=== PATIENT | male | born 1940 | race Caucasian/White ===

== ENCOUNTER 2017-07-08 17:10 | Emergency (ER) | payer MEDICARE ==
[2017-07-08] MEDS ORDERED: OXYCODONE-ACETAMINOPHEN 5-325 MG TABLET PO ONE (18:25)
[2017-07-08] MEDS ORDERED: PREDNISONE 20 MG TABLET PO ONE (18:25)
--- NOTE | 2017-07-08 18:26 | ER Document Report ---
ED Medical Screen (RME) - General Chief Complaint: Weakness Stated Complaint: BODY WEAKNESS Time Seen by Provider: 07/08/17 18:13 Mode of Arrival: Ambulatory Information source: Patient Notes: 76-year-old male presents with complaints of lower extremity weakness that started around lunchtime. Patient denies any headache denies any back pain Patient also notes gout pain in his hand I have greeted and performed a rapid initial assessment of this patient. A comprehensive ED assessment and evaluation of the patient, analysis of test results and completion of the medical decision making process will be conducted by additional ED providers. PHYSICAL EXAMINATION: GENERAL: Well-appearing, well-nourished and in no acute distress. HEAD: Atraumatic, normocephalic. EYES: Pupils equal round extraocular movements intact, conjunctiva are normal. ENT: Nares patent NECK: Normal range of motion LUNGS: No respiratory distress Musculoskeletal: Normal range of motion NEUROLOGICAL: Normal speech, normal gait. PSYCH: Normal mood, normal affect. SKIN: Warm, Dry, normal turgor, no rashes or lesions noted. TRAVEL OUTSIDE OF THE [place] IN LAST 30 DAYS: No - Related Data Allergies/Adverse Reactions: bacitracin [Bacitracin] Allergy (Verified 07/08/17 17:13) Past Medical History - Past Medical History Cardiac Medical History: Reports: Hx Atrial Fibrillation, Hx Congestive Heart Failure, Hx Hypercholesterolemia, Hx Hypertension Pulmonary Medical History: Reports: Hx COPD Endocrine Medical History: Reports: Hx Diabetes Mellitus Type 2 Renal/ Medical History: Denies: Hx Peritoneal Dialysis Past Surgical History: Reports: Hx Vascular Surgery - Immunizations Hx Diphtheria, Pertussis, Tetanus Vaccination: Yes Physical Exam - Vital signs Vitals: Temp Resp BP Pulse Ox 97.7 F 16 171/91 H 98 07/08/17 17:13 07/08/17 17:13 07/08/17 17:13 07/08/17 17:13 Course - Vital Signs Vital signs: Temp Pulse Resp BP Pulse Ox 97.7 F 16 171/91 H 98 07/08/17 17:13 07/08/17 17:13 07/08/17 17:13 07/08/17 17:13
--- NOTE | 2017-07-08 19:45 | RADIOLOGY REPORT (SQ) ---
EXAM DESCRIPTION: CT HEAD WITHOUT COMPLETED DATE/TIME: 07/08/2017 7:33 pm REASON FOR STUDY: lower extremity weakness COMPARISON: None. TECHNIQUE: Axial images acquired through the brain without intravenous contrast. Images reviewed wi th bone, brain and subdural windows. Images stored on PACS. All CT scanners at this facility use dose modulation, iterative reconstruction, and/or weight based d osing when appropriate to reduce radiation dose to as low as reasonably achievable (ALARA). [facility]: Dose Right [facility]: CareDose [facility]: Dose Right [facility]: Teradose 4D [facility]: Smart Binpress RADIATION DOSE: Up-to-date CT equipment and radiation dose reduction techniques were employed. CTDIv ol: 49.0 mGy. DLP: 881 mGy-cm. mGy. LIMITATIONS: None. FINDINGS: VENTRICLES: Prominent. CEREBRUM: No masses. No hemorrhage. No midline shift. Areas of low density in the white matter mos t likely due to chronic micro-vascular ischemic change. No evidence for acute infarction. CEREBELLUM: No masses. No hemorrhage. No alteration of density. No evidence for acute infarction. EXTRAAXIAL SPACES: Mild age-related involutional change. No fluid collections. No masses. ORBITS AND GLOBE: No intra- or extraconal masses. Normal contour of globe without masses. CALVARIUM: No fracture. PARANASAL SINUSES: No fluid or mucosal thickening. SOFT TISSUES: No mass or hematoma. OTHER: No other significant finding. IMPRESSION: MILD CHRONIC CHANGES OF ATROPHY AND MICROVASCULAR ISCHEMIA. NO ACUTE PROCESS. EVIDENCE OF ACUTE STROKE: NO. TECHNICAL DOCUMENTATION: JOB ID: [id number] Quality ID # [id number]: Final reports with documentation of one or more dose reduction techniques (e.g., Au tomated exposure control, adjustment of the mA and/or kV according to patient size, use of iterative reconstruction technique) 2010 [employer]- All Rights Reserved
[2017-07-08 20:05] LABS: ABSOLUTE BASOPHILS # (AUTO) 0.1 10^3/uL (0.0-0.2); ABSOLUTE EOSINOPHILS # (AUTO) 0.5 10^3/uL (0.0-0.6); ABSOLUTE LYMPHOCYTES (AUTO) 1.2 10^3/uL (0.5-4.7); ABSOLUTE MONOCYTES (AUTO) 0.8 10^3/uL (0.1-1.4); ABSOLUTE NEUT (AUTO) 6.1 10^3/uL (1.7-8.2); BASOPHILS % (AUTO) 0.6 % (0-2); EOSINOPHILS % (AUTO) 5.5 % (0-6); HEMATOCRIT 39.6 % (37.9-51.0); HEMOGLOBIN 13.3 g/dL (13.5-17.0); HGB HCT DIFFERENCE 0.3; LYMPHOCYTES % (AUTO) 13.6 % (13-45); MEAN CORPUSCULAR HEMOGLOBIN 28.7 pg (27.0-33.4); MEAN CORPUSCULAR HGB CONC 33.7 g/dL (32.0-36.0); MEAN CORPUSCULAR VOLUME 85 fl (80-97); MONOCYTES % (AUTO) 9.5 % (3-13); RED BLOOD COUNT 4.65 10^6/uL (4.35-5.55); RED CELL DISTRIBUTION WIDTH 16.8 % (11.5-14.0); SEGMENTED NEUTROPHILS % (AUTO) 70.8 % (42-78); WHITE BLOOD COUNT 8.6 10^3/uL (4.0-10.5)
[2017-07-08 20:30] LABS: CREATINE KINASE MB 0.34 ng/mL (<4.55)
[2017-07-08 20:31] LABS: TROPONIN I < 0.012 ng/mL
[2017-07-08 20:34] LABS: ALANINE AMINOTRANSFERASE 21 U/L (21-72); ALBUMIN 4.5 g/dL (3.5-5.0); ALKALINE PHOSPHATASE 87 U/L (38-126); ANION GAP 14 (5-19); ASPARTATE AMINO TRANSFERASE 17 U/L (17-59); BILIRUBIN,DIRECT 0.5 mg/dL (0.0-0.4); BILIRUBIN,TOTAL 0.8 mg/dL (0.2-1.3); BLOOD UREA NITROGEN 20 mg/dL (7-20); CARBON DIOXIDE 26 mmol/L (22-30); CHLORIDE 99 mmol/L (98-107); CREATINE KINASE 31 U/L (55-170); CREATININE RESULT 1.48 mg/dL (0.52-1.25); GLUCOSE 96 mg/dL (75-110); POTASSIUM 4.2 mmol/L (3.6-5.0); SODIUM 139.4 mmol/L (137-145); TOTAL PROTEIN 7.4 g/dL (6.3-8.2)
[2017-07-08] MEDS ORDERED: NORMAL SALINE 1000 ML 1,000 ML IV ONE (20:43)
--- NOTE | 2017-07-08 20:44 | ER Document Report ---
ED General - General Chief Complaint: Weakness Stated Complaint: BODY WEAKNESS Time Seen by Provider: 07/08/17 18:13 Mode of Arrival: Ambulatory TRAVEL OUTSIDE OF THE [place] IN LAST 30 DAYS: No - HPI Notes: Patient with a history of defibrillator placement, stent placement, diabetes, COPD, Gout, congestive heart failure, hypertension, and hypercholesterolemia presents to the ED complaining of generalized weakness that began about 8 hours ago. Patient states that he has felt this in the past and was dehydrated at the time. Patient states that he is still eating and drinking without any difficulties. He is urinating normally and having normal bowel movements. Patient states that his gout is flaring up in his left third digit, but denies any other pain. Patient states that he is ambulating without any dyspnea on exertion. He has not been having any paroxysmal nocturnal dyspnea, or LE swelling. Denies any headache, fever, head injury, neck pain, changes in vision /speech/mentation/hearing, URI, sore throat, chest pain, palpitations, syncope, cough, shortness of breath, wheeze, dyspnea, abdominal pain, nausea/vomiting/ diarrhea, urinary retention, dysuria, hematuria, numbness/tingling, muscle paralysis, or rash. Patient denies any recent illness, travel, sick contacts. Denies any calf pains. - Related Data Allergies/Adverse Reactions: bacitracin [Bacitracin] Allergy (Verified 07/08/17 17:13) Past Medical History - General Information source: Patient - Social History Smoking Status: Former Smoker Chew tobacco use (# tins/day): No Frequency of alcohol use: None Drug Abuse: None Family History: Reviewed & Not Pertinent - Past Medical History Cardiac Medical History: Reports: Hx Atrial Fibrillation, Hx Congestive Heart Failure, Hx Hypercholesterolemia, Hx Hypertension Pulmonary Medical History: Reports: Hx COPD Endocrine Medical History: Reports: Hx Diabetes Mellitus Type 2 Renal/ Medical History: Denies: Hx Peritoneal Dialysis Past Surgical History: Reports: Hx Cardiac Surgery - defibulator placement, Hx Vascular Surgery - Immunizations Hx Diphtheria, Pertussis, Tetanus Vaccination: Yes Review of Systems - Review of Systems Notes: REVIEW OF SYSTEMS: CONSTITUTIONAL : Denies fever, chills, or sweats. Denies recent illness. see hpi. EENT: Denies eye, ear, throat, or mouth pain or symptoms. Denies nasal or sinus congestion or discharge. Denies throat, tongue, or mouth swelling or difficulty swallowing. CARDIOVASCULAR: Denies chest pain. Denies palpitations or racing or irregular heart beat. Denies ankle edema. RESPIRATORY: Denies cough, cold, or chest congestion. Denies shortness of breath, difficulty breathing, or wheezing. GASTROINTESTINAL: Denies abdominal pain or distention. Denies nausea, vomiting , or diarrhea. Denies blood in vomitus, stools, or per rectum. Denies black, tarry stools. Denies constipation. GENITOURINARY: Denies difficulty urinating, painful urination, burning, frequency, blood in urine, or discharge. MUSCULOSKELETAL: see hpi SKIN: Denies rash, lesions or sores. NEUROLOGICAL: see hpi. denies confusion or altered mental status. Denies passing out or loss of consciousness. Denies dizziness or lightheadedness. Denies headache. Denies problems with gait or speech. Denies sensory loss, numbness, or tingling. Denies seizures. PSYCHIATRIC: Denies anxiety or stress. Denies depression, suicidal ideation, or homicidal ideation. ALL OTHER SYSTEMS REVIEWED AND NEGATIVE. Dictation was performed using [employer] voice recognition software Physical Exam - Vital signs Vitals: Temp Resp BP Pulse Ox 97.7 F 16 171/91 H 98 07/08/17 17:13 07/08/17 17:13 07/08/17 17:13 07/08/17 17:13 Notes: PHYSICAL EXAMINATION: GENERAL: Well-appearing, well-nourished and in no acute distress. A&Ox4 HEAD: Atraumatic, normocephalic. EYES: Pupils equal round and reactive to light, extraocular movements intact, sclera anicteric, conjunctiva are normal. ENT: EAC clear b/l. TM's intact b/l without erythema, fluid, or perforation. Nares patent and without discharge. oropharynx clear without exudates. No tonsilar hypertrophy or erythema. Moist mucous membranes. No sinus tenderness. NECK: Normal range of motion, supple without lymphadenopathy. No rigidity/ meningismus. LUNGS: Breath sounds clear to auscultation bilaterally and equal. No wheezes rales or rhonchi. HEART: IRR without murmurs, rubs, gallops. ABDOMEN: Soft, nontender, nondistended abdomen. No guarding, no rebound. No masses appreciated. Normal bowel sounds present. No CVA tenderness bilaterally. Musculoskeletal: Ext b/l: FROM to passive/active. Strength 5+/5. No focal deficits noted. N/V intact. Marcela neg b/l. Extremities: No cyanosis, clubbing, or edema b/l. Peripheral pulses 2+. Capillary refill less than 3 seconds. NEUROLOGICAL: MMSE intact. NIH score of 0. Cranial nerves grossly intact. Normal speech, normal gait. Normal sensory, motor exams. REHAN's intact. Finger :nose, Heel:gaitan wnl, pronator drift negative, pt able to ambulate with SPC w/o difficulty. PSYCH: Normal mood, normal affect. SKIN: Warm, Dry, normal turgor, no rashes or lesions noted. Course - Re-evaluation Re-evalutation: 07/08/17 23:59 Pt states after the fluid he was feeling good and wants to go home. Pt states no longer feeling weak. Pt tolerating PO intake and eating dinner. 07/09/17 01:25 Patient is an afebrile, well-hydrated, 76-year-old male who presents the ED with weakness. Vitals are stable. PE otherwise unremarkable at this time. NIH score was 0. Mini-Mental status exam is intact. There are no focal neurological deficits. CT scan of the head was negative. CBC was unremarkable. CMP did show stable chronic kidney disease the patient has been aware of. Patient still urinating without any difficulties. Patient is tolerating p.o. intake as noted above. Cardiac enzymes 2 and EKGs 2 were unremarkable for any acute pathology. Patient has a heart score of 3 (low). Urinalysis was unremarkable. Patient is currently asymptomatic and is feeling much better after 1.5 L saline. Patient states that he would like to go home knowing the risks and benefits. Low suspicion/risk for any ACS, PE, pneumothorax, pericarditis, dissection, sepsis, meningitis, acute glaucoma, temporal arteritis, intracranial hemorrhage, ischemic stroke, or fracture at this time. Patient is aware that his condition can change from initial presentation and that he needs to monitor symptoms closely for any acute changes. Conservative measures for symptoms. Recheck with your PCM in 2-3 days. Return to the ED with any worsening/concerning symptoms otherwise as reviewed discharge. Patient is in agreement. - Vital Signs Vital signs: Temp Pulse Resp BP Pulse Ox 97.7 F 22 H 146/94 H 95 07/08/17 17:13 07/09/17 00:15 07/09/17 00:01 07/09/17 00:15 - Laboratory Result Diagrams: 07/08/17 19:45 07/08/17 19:45 Laboratory results interpreted by me: 07/08/17 07/08/17 19:45 19:45 Hgb 13.3 L RDW 16.8 H Creatinine 1.48 H Est GFR ( Amer) 56 L Est GFR (Non-Af Amer) 46 L Direct Bilirubin 0.5 H Creatine Kinase 31 L Discharge - Discharge Clinical Impression: Weakness Condition: Stable Disposition: HOME, SELF-CARE Instructions: Weakness ([facility]), Follow-Up Care ([facility]) Additional Instructions: Maintain adequate fluid and food intake Take home medications as directed Monitor blood pressure Monitor for any changes in your condition Recheck with your PCM in 2-3 days Return to the ED with any worsening symptoms and/or development of fever, headache, changes in vision/speech/mentation/behavior/balance/hearing, chest pain, palpitations, syncope, shortness of breath, trouble breathing, abdominal pain, n/v/d, blood in stool/urine, loss of control of bowel/bladder, urinary retention, muscle weakness/paralysis, numbness/tingling, or other worsening symptoms that are concerning to you. Forms: Elevated Blood Pressure Referrals: SAMEERA PORTER FNP [Primary Care Provider] - 07/11/17
--- NOTE | 2017-07-08 21:01 | EKG REPORT ---
SEVERITY:- ABNORMAL ECG - VENTRICULAR-PACED COMPLEXES : Confirmed by: Arlyn Gilmore MD 08-Jul-2017 21:00:55
[2017-07-08 21:27] LABS: APPEARANCE,URINE CLEAR; BILIRUBIN,URINE NEGATIVE (NEGATIVE); GLUCOSE, URINE NEGATIVE (NEGATIVE); KETONES,URINE NEGATIVE (NEGATIVE); LEUKOCYTE ESTERASE,URINE NEGATIVE (NEGATIVE); NITRITE,URINE NEGATIVE (NEGATIVE); PROTEIN,URINE NEGATIVE (NEGATIVE); URINE SPECIFIC GRAVITY 1.006; UROBILINOGEN,URINE NEGATIVE mg/dL (<2.0)
[2017-07-08] MEDS ORDERED: NORMAL SALINE 500 ML IV ONE (23:39)
[2017-07-09 02:04] VITALS: BP 133/83
--- NOTE | 2017-07-09 16:44 | EKG REPORT ---
SEVERITY:- ABNORMAL ECG - ATRIAL-SENSED VENTRICULAR-PACED COMPLEXES : Confirmed by: Arlyn Gilmore MD 09-Jul-2017 16:43:59
== END 2017-07-09 02:04 | disposition home or self-care (01) ==
LOC: ER 17:10
DX: R53.1 Weakness (principal); E11.9 Type 2 diabetes mellitus without complications; J44.9 Chronic obstructive pulmonary disease, unspecified; I50.9 Heart failure, unspecified; I10 Essential (primary) hypertension; E78.00 Pure hypercholesterolemia, unspecified
CPT/HCPCS: 93005; 99285; 96360; 36415; 82553; 82550; 85025; 80053; 81001; 84484; 70450; 93010; A9270; J7030; J7512

== ENCOUNTER → 2017-08-29 | Outpatient (CLI) | payer MEDICARE, BC ==
[~2017-08-29] MED LIST: AMINOPHYLLINE INJ/PF 250 MG/10 ML SDV IV ONE; REGADENOSON INJ 0.4 MG/5 ML DISP.SYRIN IV ONE
--- NOTE | 2017-08-29 19:28 | DRAGON STRESS TEST REPORT ---
INTRAVENOUS LEXISCAN CARDIOLITE STRESS TEST USING SINGLE PHOTON EMMISION COMPUTERIZED TOMOGRAPHIC. DATE OF PROCEDURE: August 29, 2017 INDICATION : Coronary artery disease CARDIAC RISK FACTORS: Diabetes, hypertension, dyslipidemia, CHF RESTING EKG: Ventricular paced rhythm. Underlying atrial rhythm is most likely atrial fibrillation. STRESS EKG: No significant changes noted with LexiScan bolus REASON FOR TERMINATION: Protocol. PROCEDURE REPORT: Baseline heart rate 72 beats per minute with blood pressure of 141/88. Patient had no significant complaints. Heart rate at 2 minutes post bolus 88 with a blood pressure of 140/98. 3 minutes post bolus heart rate 80 with blood pressure of 160/83. No significant EKG changes were noted. Patient had no significant complaints during the procedure or postprocedure. Patient injected with Aminophyllin 75 mg at 3 minutes or later after Lexiscan bolus. CONCLUSIONS: Normal EKG and hemodynamic response to IV LexiScan. NUCLEAR DATA: At rest the patient was given 13.63 millicuries of technetium 99 sestamibi injected intravenously. As per protocol rest gated SPECT images were obtained. Subsequently the patient was given intravenous LexiScan at a dose of 0.4 mg in 5 mL intravenously, followed by flush with normal saline. Subsequently the stress dose of 40.2 millicuries of technetium 99 sestamibi was injected intravenously. As per protocol stress gated images were obtained. NUCLEAR INTERPRETATION: Both raw and processed data were used for interpretation. Visual, qualitative, computer-generated quantitative data was used. There was good myocardial uptake of technetium compound. Motion artifact and soft tissue attenuations were noted. Increased visceral uptake was noted. No definitive areas of transient perfusion defect noted. Moderate to severe fixed defect noted in the basal and mid inferior wall consistent with myocardial scar. EKG gated imaging showed LV EF at 25 %, rest and stress gated EF similar visually. Diffuse hypokinesia along with akinesia of the basal and mid inferior wall and septal hypokinesia was noted. T. I D. ratio was 1.06. Lung heart ratio noted to be within normal limits 0.32. No significant extracardiac and abnormal radiotracer activities were noted. RV free wall uptake was noted to be WNL. IMPRESSION: Also refer to comments under nuclear interpretation. Also test results needs to be interpreted in the context of pretest probability. 1. There is no definitive scintigraphic evidence of LexiScan induced myocardial ischemia. 2. Moderate to severe fixed defect noted involving the basal and mid inferior wall consistent with myocardial scar/infarction. 3. EKG gated imaging shows left ventricular ejection fraction of approximately 25 %, basal and mid inferior wall akinesia and inter ventricular septal hypokinesia noted most likely related to paced beats. 4. Clinical correlation requested as occasionally single vessel disease or balanced ischemia could be missed. In approximately 10% of the cases Lexiscan may not cause adequate vasodilatory stress. RECOMMENDATIONS: Aggressive risk factor modification, medical therapy. Clinical correlation with echocardiogram derived ejection fraction. Inability to exercise by itself can lead to increased cardiovascular event risks. Consider cardiology consultation and or follow-up if clinically indicated. Harjit Teixeira M.D., [facility] CENTERBenjamin Artists' Booking Representative inbound sales advisor, Board certified in cardiovascular diseases, Nuclear cardiology, Echocardiography Cardiac CT and cardiac MRI Ph. [phone] [facility]
== END ==
LOC: RAD 08:04
PROVIDERS: ATTEND Internal Medicine Cardiovascular Disease
DX: I25.10 Atherosclerotic heart disease of native coronary artery without angina pectoris (principal); I10 Essential (primary) hypertension; E11.9 Type 2 diabetes mellitus without complications; I50.9 Heart failure, unspecified; E78.5 Hyperlipidemia, unspecified
CPT/HCPCS: 93017; 78452; A9500; J2785; J0280; Q9969

== ENCOUNTER 2017-09-18 10:32 | Emergency (ER) | payer BC, MEDICARE ==
--- NOTE | 2017-09-18 10:55 | ER Document Report ---
ED Medical Screen (RME) - General Chief Complaint: Cough Stated Complaint: COUGH,CONGESTION Time Seen by Provider: 09/18/17 10:48 Notes: 77-year-old male patient with 2 day history of congested cough with yellow to white sputum and low-grade fever last night. He is here to be sure he does not have pneumonia. Past medical history is significant for old [place] with an ejection fraction of 25% on a recent Cardiolite stress test. Chronic atrial fibrillation, pacemaker, type 2 diabetes, hyperlipidemia, hypertension and hypothyroidism. He does take Plavix, no anticoagulants. I have greeted and performed a rapid initial assessment of this patient. A comprehensive ED assessment and evaluation of the patient, analysis of test results and completion of the medical decision making process will be conducted by additional ED providers. TRAVEL OUTSIDE OF THE [place] IN LAST 30 DAYS: No - Related Data Allergies/Adverse Reactions: bacitracin [Bacitracin] Allergy (Verified 09/18/17 10:36) Past Medical History - Social History Chew tobacco use (# tins/day): No Frequency of alcohol use: None Drug Abuse: None - Past Medical History Cardiac Medical History: Reports: Hx Atrial Fibrillation, Hx Congestive Heart Failure, Hx Hypercholesterolemia, Hx Hypertension Pulmonary Medical History: Reports: Hx COPD Endocrine Medical History: Reports: Hx Diabetes Mellitus Type 2 Renal/ Medical History: Denies: Hx Peritoneal Dialysis Past Surgical History: Reports: Hx Cardiac Surgery - defibulator placement, Hx Vascular Surgery - Immunizations Hx Diphtheria, Pertussis, Tetanus Vaccination: Yes Physical Exam - Vital signs Vitals: Temp Pulse Resp BP Pulse Ox 97.9 F 91 17 131/86 H 97 09/18/17 10:44 09/18/17 10:44 09/18/17 10:44 09/18/17 10:44 09/18/17 10:44 Course - Vital Signs Vital signs: Temp Pulse Resp BP Pulse Ox 97.9 F 91 17 131/86 H 97 09/18/17 10:44 09/18/17 10:44 09/18/17 10:44 09/18/17 10:44 09/18/17 10:44
[2017-09-18 11:24] LABS: ABSOLUTE BASOPHILS # (AUTO) 0.1 10^3/uL (0.0-0.2); ABSOLUTE EOSINOPHILS # (AUTO) 1.1 10^3/uL (0.0-0.6); ABSOLUTE LYMPHOCYTES (AUTO) 0.8 10^3/uL (0.5-4.7); ABSOLUTE MONOCYTES (AUTO) 0.6 10^3/uL (0.1-1.4); ABSOLUTE NEUT (AUTO) 5.3 10^3/uL (1.7-8.2); BASOPHILS % (AUTO) 0.7 % (0-2); EOSINOPHILS % (AUTO) 13.7 % (0-6); HEMATOCRIT 39.6 % (37.9-51.0); HEMOGLOBIN 13.3 g/dL (13.5-17.0); HGB HCT DIFFERENCE 0.3; LYMPHOCYTES % (AUTO) 10.3 % (13-45); MEAN CORPUSCULAR HEMOGLOBIN 29.1 pg (27.0-33.4); MEAN CORPUSCULAR HGB CONC 33.5 g/dL (32.0-36.0); MEAN CORPUSCULAR VOLUME 87 fl (80-97); MONOCYTES % (AUTO) 7.6 % (3-13); RED BLOOD COUNT 4.57 10^6/uL (4.35-5.55); RED CELL DISTRIBUTION WIDTH 17.1 % (11.5-14.0); SEGMENTED NEUTROPHILS % (AUTO) 67.7 % (42-78); WHITE BLOOD COUNT 7.8 10^3/uL (4.0-10.5)
--- NOTE | 2017-09-18 11:41 | RADIOLOGY REPORT (SQ) ---
EXAM DESCRIPTION: CHEST PA/LAT COMPLETED DATE/TIME: 09/18/2017 11:29 am REASON FOR STUDY: Cough congestion, sputum, fever COMPARISON: 02/07/2014 EXAM PARAMETERS: NUMBER OF VIEWS: two views TECHNIQUE: Digital Frontal and Lateral radiographic views of the chest acquired. RADIATION DOSE: NA LIMITATIONS: none FINDINGS: LUNGS AND PLEURA: Mild chronic interstitial changes present. No infiltrate or effusion. No mass. MEDIASTINUM AND HILAR STRUCTURES: No masses or contour abnormalities. HEART AND VASCULAR STRUCTURES: Heart size is normal. No vascular abnormality. BONES: No acute findings. HARDWARE: Pacemaker/defibrillator. OTHER: No other significant finding. IMPRESSION: NO SIGNIFICANT RADIOGRAPHIC FINDING IN THE CHEST. TECHNICAL DOCUMENTATION: JOB ID: [id number] [employer]- All Rights Reserved
[2017-09-18 11:43] LABS: ALANINE AMINOTRANSFERASE 27 U/L (21-72); ALBUMIN 4.3 g/dL (3.5-5.0); ALKALINE PHOSPHATASE 70 U/L (38-126); ANION GAP 12 (5-19); ASPARTATE AMINO TRANSFERASE 15 U/L (17-59); BILIRUBIN,DIRECT 0.4 mg/dL (0.0-0.4); BILIRUBIN,TOTAL 0.8 mg/dL (0.2-1.3); BLOOD UREA NITROGEN 16 mg/dL (7-20); CALCIUM 9.5 mg/dL (8.4-10.2); CARBON DIOXIDE 33 mmol/L (22-30); CHLORIDE 98 mmol/L (98-107); GLUCOSE 172 mg/dL (75-110); POTASSIUM 4.1 mmol/L (3.6-5.0); SODIUM 143.3 mmol/L (137-145); TOTAL PROTEIN 6.9 g/dL (6.3-8.2)
--- NOTE | 2017-09-18 12:09 | ER Document Report ---
ED General - General Chief Complaint: Cough Stated Complaint: COUGH,CONGESTION Time Seen by Provider: 09/18/17 10:48 Notes: 77-year-old male with history of heart failure presents with coughing for 2 days , productive, no blood, constant, worse than usual and now associated with some sore throat and cold symptoms. No fevers or body aches. Positive flu shot. No increased leg swelling or chest pain. Came to rule out pneumonia. Patient seen in triage, labs and x-ray were ordered. TRAVEL OUTSIDE OF THE [place] IN LAST 30 DAYS: No - Related Data Allergies/Adverse Reactions: bacitracin [Bacitracin] Allergy (Verified 09/18/17 10:36) Past Medical History - Social History Smoking Status: Former Smoker Chew tobacco use (# tins/day): No Frequency of alcohol use: None Drug Abuse: None Family History: Reviewed & Not Pertinent Patient has suicidal ideation: No Patient has homicidal ideation: No - Past Medical History Cardiac Medical History: Reports: Hx Atrial Fibrillation, Hx Congestive Heart Failure, Hx Hypercholesterolemia, Hx Hypertension Pulmonary Medical History: Reports: Hx COPD Endocrine Medical History: Reports: Hx Diabetes Mellitus Type 2 Renal/ Medical History: Denies: Hx Peritoneal Dialysis Past Surgical History: Reports: Hx Cardiac Surgery - defibulator placement, Hx Vascular Surgery - Immunizations Hx Diphtheria, Pertussis, Tetanus Vaccination: Yes Review of Systems - Review of Systems Notes: REVIEW OF SYSTEMS GEN: Chills ENT: sore throat, denies nasal discharge, ear pain EYES: Denies blurry vision, eye pain, discharge CV: Denies chest pain, palpitations, edema RESP: Active cough no shortness of breath GI: Denies abdominal pain, nausea, vomiting, diarrhea MSK: Denies joint pain/swelling, edema, SKIN: Denies rash, skin lesions LYMPH: Denies swollen glands/lymph nodes NEURO: Denies headache, focal weakness or numbness, dizziness PSYCH: Denies depression, suicidal or homicidal ideation PHYSICAL EXAMINATION General: No acute distress, well-nourished Head: Atraumatic, normocephalic ENT: Mouth normal, oropharynx moist, no exudates or tonsillar enlargement Eyes: Conjunctiva normal, pupils equal, lids normal Neck: No JVD, supple, no guarding CVS: Normal rate, regular rhythm, no murmurs Resp: No resp distress, equal and normal breath sounds bilaterally GI: Nondistended, soft, no tenderness to palpation, no rebound or guarding Ext: No deformities, no edema, normal range of motion in upper and lower ext Back: No CVA or midline TTP Skin: No rash, warm Lymphatic: No lymphadeopathy noted Neuro: Awake, alert. Face symmetric. GCS 15. Physical Exam - Vital signs Vitals: Temp Pulse Resp BP Pulse Ox 97.9 F 91 17 131/86 H 97 09/18/17 10:44 09/18/17 10:44 09/18/17 10:44 09/18/17 10:44 09/18/17 10:44 Course - Re-evaluation Re-evalutation: 09/18/17 12:15 Well-appearing male presents with cough and cold symptoms history of heart failure. She has no edema or adventitious lung sounds. Labs and x-ray ordered at triage are normal her baseline. Will prescribe Mucinex diagnosis bronchitis versus upper respiratory infection. Warned about worsening symptoms and the development of pneumonia or volume overload, however given his evaluation here in the ED I think he is stable for discharge. I have discussed with the patient there likely diagnosis, aftercare plan, follow -up plans and my usual and customary return precautions. They verbalized understanding of this. - Vital Signs Vital signs: Temp Pulse Resp BP Pulse Ox 97.9 F 91 17 131/86 H 97 09/18/17 10:44 09/18/17 10:44 09/18/17 10:44 09/18/17 10:44 09/18/17 10:44 - Laboratory Result Diagrams: 09/18/17 11:03 09/18/17 11:03 Laboratory results interpreted by me: 09/18/17 09/18/17 11:03 11:03 Hgb 13.3 L RDW 17.1 H Lymphocytes % 10.3 L Eosinophils % 13.7 H Absolute Eosinophils 1.1 H Carbon Dioxide 33 H Creatinine 1.50 H Est GFR ( Amer) 55 L Est GFR (Non-Af Amer) 45 L Glucose 172 H AST 15 L - Diagnostic Test Radiology reviewed: Image reviewed, Reports reviewed Discharge - Discharge Clinical Impression: Productive cough Condition: Good Disposition: HOME, SELF-CARE Instructions: Cough Suppressant & Expectorant Medications, Nasal Congestion in Infants ([facility]) Prescriptions: Guaifenesin 400 mg PO BID #7 tablet
[2017-09-18 12:57] VITALS: BP 125/76
== END 2017-09-18 12:54 | disposition home or self-care (01) ==
LOC: ER 10:32
DX: R05 Cough (principal); R09.81 Nasal congestion; I50.9 Heart failure, unspecified; J02.9 Acute pharyngitis, unspecified; Z87.891 Personal history of nicotine dependence
CPT/HCPCS: 36415; 71020; 80053; 85025; 87040; 87070; 87205; 99283

== ENCOUNTER 2017-09-24 13:28 | Emergency (ER) | payer MEDICARE ==
[2017-09-24 15:24] LABS: ABSOLUTE EOSINOPHILS # (AUTO) 0.5 10^3/uL (0.0-0.6); ABSOLUTE LYMPHOCYTES (AUTO) 0.6 10^3/uL (0.5-4.7); ABSOLUTE MONOCYTES (AUTO) 0.2 10^3/uL (0.1-1.4); ABSOLUTE NEUT (AUTO) 5.8 10^3/uL (1.7-8.2); BASOPHILS % (AUTO) 0.4 % (0-2); EOSINOPHILS % (AUTO) 6.6 % (0-6); HEMATOCRIT 38.3 % (37.9-51.0); HGB HCT DIFFERENCE 0.7; LYMPHOCYTES % (AUTO) 8.4 % (13-45); MEAN CORPUSCULAR HEMOGLOBIN 29.1 pg (27.0-33.4); MEAN CORPUSCULAR HGB CONC 34.1 g/dL (32.0-36.0); MEAN CORPUSCULAR VOLUME 85 fl (80-97); MONOCYTES % (AUTO) 2.9 % (3-13); RED BLOOD COUNT 4.49 10^6/uL (4.35-5.55); RED CELL DISTRIBUTION WIDTH 16.4 % (11.5-14.0); SEGMENTED NEUTROPHILS % (AUTO) 81.7 % (42-78); WHITE BLOOD COUNT 7.1 10^3/uL (4.0-10.5)
[2017-09-24 15:32] LABS: APPEARANCE,URINE CLEAR; BILIRUBIN,URINE NEGATIVE (NEGATIVE); GLUCOSE, URINE NEGATIVE (NEGATIVE); KETONES,URINE TRACE mg/dL (NEGATIVE); LEUKOCYTE ESTERASE,URINE NEGATIVE (NEGATIVE); NITRITE,URINE NEGATIVE (NEGATIVE); PROTEIN,URINE NEGATIVE (NEGATIVE); URINE SPECIFIC GRAVITY 1.008; UROBILINOGEN,URINE NEGATIVE mg/dL (<2.0)
[2017-09-24 15:35] LABS: ALANINE AMINOTRANSFERASE 33 U/L (21-72); ALBUMIN 3.9 g/dL (3.5-5.0); ALKALINE PHOSPHATASE 75 U/L (38-126); ANION GAP 12 (5-19); ASPARTATE AMINO TRANSFERASE 23 U/L (17-59); BILIRUBIN,DIRECT 0.5 mg/dL (0.0-0.4); BILIRUBIN,TOTAL 0.9 mg/dL (0.2-1.3); BLOOD UREA NITROGEN 18 mg/dL (7-20); CALCIUM 9.1 mg/dL (8.4-10.2); CARBON DIOXIDE 31 mmol/L (22-30); CHLORIDE 100 mmol/L (98-107); CREATININE RESULT 1.63 mg/dL (0.52-1.25); GLUCOSE 140 mg/dL (75-110); LIPASE 68.6 U/L (23-300); POTASSIUM 4.4 mmol/L (3.6-5.0); SODIUM 142.7 mmol/L (137-145); TOTAL PROTEIN 6.4 g/dL (6.3-8.2)
--- NOTE | 2017-09-24 17:04 | ER Document Report ---
ED General - General Chief Complaint: Abdominal Pain >50 Stated Complaint: ABDOMINAL PAIN Time Seen by Provider: 09/24/17 16:49 Mode of Arrival: Medic Information source: Patient TRAVEL OUTSIDE OF THE [place] IN LAST 30 DAYS: No - HPI Patient complains to provider of: Abdominal pain Onset: Just prior to arrival Onset/Duration: Sudden Quality of pain: Stabbing Severity: Severe Pain Level: 5 Context: This 77-year-old male states that he was eating eggs and sausage this morning when he got acute onset of sharp epigastric pain. Dates it was followed by multiple bouts of vomiting, no diarrhea. Pain is relieved upon presentation to the emergency department. Associated symptoms: Nausea, Vomiting Exacerbated by: Food Relieved by: Other - Vomiting Similar symptoms previously: No Recently seen / treated by doctor: No - Related Data Allergies/Adverse Reactions: bacitracin [Bacitracin] Allergy (Verified 09/24/17 13:48) Past Medical History - General Information source: Patient - Social History Smoking Status: Former Smoker Chew tobacco use (# tins/day): No Frequency of alcohol use: None Drug Abuse: None Lives with: Alone Family History: Reviewed & Not Pertinent Patient has suicidal ideation: No Patient has homicidal ideation: No - Past Medical History Cardiac Medical History: Reports: Hx Atrial Fibrillation, Hx Congestive Heart Failure, Hx Hypercholesterolemia, Hx Hypertension Pulmonary Medical History: Reports: Hx COPD EENT Medical History: Reports: None Neurological Medical History: Reports: None Endocrine Medical History: Reports: Hx Diabetes Mellitus Type 2 Renal/ Medical History: Denies: Hx Peritoneal Dialysis GI Medical History: Reports: None Musculoskeltal Medical History: Reports Hx Gout Skin Medical History: Reports None Psychiatric Medical History: Reports: None Traumatic Medical History: Reports: None Past Surgical History: Reports: Hx Cardiac Surgery - defibulator placement, Hx Coronary Stent, Hx Vascular Surgery, Other - AICD - Immunizations Immunizations up to date: No Hx Diphtheria, Pertussis, Tetanus Vaccination: Yes History of Influenza Vaccine for 07/2017 - 12/2017 Season: No History of Pneumococcal Vaccine: Unknown Review of Systems - Review of Systems Constitutional: No symptoms reported EENT: No symptoms reported Cardiovascular: No symptoms reported Respiratory: No symptoms reported Gastrointestinal: Abdominal pain, Vomiting Genitourinary: No symptoms reported Male Genitourinary: No symptoms reported Musculoskeletal: No symptoms reported Skin: No symptoms reported Hematologic/Lymphatic: No symptoms reported Neurological/Psychological: No symptoms reported Physical Exam - Vital signs Vitals: Temp Pulse Resp BP Pulse Ox 97.9 F 66 20 173/95 H 96 09/24/17 13:31 09/24/17 13:31 09/24/17 13:31 09/24/17 13:31 09/24/17 13:31 Interpretation: Hypertensive - Notes Notes: PHYSICAL EXAMINATION: GENERAL: Well-appearing, well-nourished and in no acute distress. Patient lying comfortably in bed no acute distress no complaints HEAD: Atraumatic, normocephalic. EYES: Pupils equal round and reactive to light, extraocular movements intact, sclera anicteric, conjunctiva are normal. ENT: Nares patent, oropharynx clear without exudates. Moist mucous membranes. NECK: Normal range of motion, supple without lymphadenopathy LUNGS: Breath sounds clear to auscultation bilaterally and equal. No wheezes rales or rhonchi. HEART: Regular rate and rhythm ABDOMEN: Soft, nontender, nondistended abdomen. No guarding, no rebound. No masses appreciated. Musculoskeletal: Normal range of motion, no pitting or edema. No cyanosis. NEUROLOGICAL: Cranial nerves grossly intact. Normal speech. Normal sensory, motor exams PSYCH: Normal mood, normal affect. SKIN: Warm, Dry, normal turgor, no rashes or lesions noted. Course - Re-evaluation Re-evalutation: 09/24/17 17:06 She tolerated p.o. intake without difficulty - Vital Signs Vital signs: Temp Pulse Resp BP Pulse Ox 97.9 F 66 20 173/95 H 96 09/24/17 13:31 09/24/17 13:31 09/24/17 13:31 09/24/17 13:31 09/24/17 13:31 - Laboratory Result Diagrams: 09/24/17 14:55 09/24/17 14:55 Laboratory results interpreted by me: 09/24/17 09/24/17 09/24/17 14:55 14:55 15:10 Hgb 13.0 L RDW 16.4 H Seg Neutrophils % 81.7 H Lymphocytes % 8.4 L Monocytes % 2.9 L Eosinophils % 6.6 H Carbon Dioxide 31 H Creatinine 1.63 H Est GFR ( Amer) 50 L Est GFR (Non-Af Amer) 41 L Glucose 140 H Direct Bilirubin 0.5 H Urine Ketones TRACE H Discharge - Discharge Clinical Impression: Epigastric abdominal pain Condition: Stable Disposition: HOME, SELF-CARE Instructions: Abdominal Pain ([facility]) Referrals: BERT NEUMANN MD [Primary Care Provider] - Follow up in 3-5 days (Return to the ED immediately if symptoms recur)
[2017-09-24 17:32] VITALS: BP 116/79
== END 2017-09-24 17:36 | disposition home or self-care (01) ==
LOC: ER 13:28
DX: R10.13 Epigastric pain (principal); R11.2 Nausea with vomiting, unspecified; I10 Essential (primary) hypertension; J44.9 Chronic obstructive pulmonary disease, unspecified; E11.9 Type 2 diabetes mellitus without complications; I48.91 Unspecified atrial fibrillation; Z95.810 Presence of automatic (implantable) cardiac defibrillator; Z95.5 Presence of coronary angioplasty implant and graft; Z88.1 Allergy status to other antibiotic agents
CPT/HCPCS: 36415; 80053; 81001; 83690; 85025; 99284

== ENCOUNTER 2018-02-19 13:14 | Emergency (ER) | payer MEDICARE ==
[2018-02-19 13:32] VITALS: BP 130/71
[2018-02-19] MEDS ORDERED: LIDOCAINE 5% (700 MG) TRANSDERMAL ADH..PATCH TP ONE (14:11)
--- NOTE | 2018-02-19 14:15 | ER Document Report ---
ED General - General Chief Complaint: Arm Pain Stated Complaint: RIGHT ELBOW PAIN Time Seen by Provider: 02/19/18 13:57 TRAVEL OUTSIDE OF THE [place] IN LAST 30 DAYS: No - HPI Patient complains to provider of: Swelling to the right elbow Notes: Patient with a history of gout and history of bursitis to the right elbow. Patient states follows up with orthopedics and more history states he has multiple draining of both elbows because of bursitis and gout. Patient denies any fever states his pain. Patient denies any trauma. Patient states came in today for evaluation of pain patient states he does have Percocet at home however has not taken this. Also denies any use of Tylenol or any Motrin. Resting comfortably upon my evaluation. - Related Data Allergies/Adverse Reactions: bacitracin [Bacitracin] Allergy (Verified 09/24/17 13:48) Past Medical History - Social History Smoking Status: Former Smoker Chew tobacco use (# tins/day): No Frequency of alcohol use: None Drug Abuse: None Family History: Reviewed & Not Pertinent Patient has suicidal ideation: No Patient has homicidal ideation: No - Past Medical History Cardiac Medical History: Reports: Hx Atrial Fibrillation, Hx Congestive Heart Failure, Hx Hypercholesterolemia, Hx Hypertension Pulmonary Medical History: Reports: Hx COPD Endocrine Medical History: Reports: Hx Diabetes Mellitus Type 2 Renal/ Medical History: Denies: Hx Peritoneal Dialysis Musculoskeltal Medical History: Reports Hx Gout Past Surgical History: Reports: Hx Abdominal Surgery - hernia w/ mesh, Hx Cardiac Surgery - defibulator placement, Hx Coronary Stent, Hx Vascular Surgery , Other - AICD - Immunizations Immunizations up to date: No Hx Diphtheria, Pertussis, Tetanus Vaccination: Yes Review of Systems - Review of Systems Constitutional: No symptoms reported EENT: No symptoms reported Cardiovascular: No symptoms reported Respiratory: No symptoms reported Gastrointestinal: No symptoms reported Genitourinary: No symptoms reported Male Genitourinary: No symptoms reported Musculoskeletal: Other - Bursitis Skin: No symptoms reported Hematologic/Lymphatic: No symptoms reported Neurological/Psychological: No symptoms reported -: Yes All other systems reviewed and negative Physical Exam - Vital signs Vitals: Temp Pulse Resp BP Pulse Ox 98.3 F 72 20 130/71 H 96 02/19/18 13:31 02/19/18 13:31 02/19/18 13:31 02/19/18 13:31 02/19/18 13:31 Interpretation: Normal - General General appearance: Appears well, Alert - HEENT Head: Normocephalic, Atraumatic Eyes: Normal Pupils: PERRL - Respiratory Respiratory status: No respiratory distress Chest status: Nontender Breath sounds: Normal Chest palpation: Normal - Cardiovascular Rhythm: Regular Heart sounds: Normal auscultation Murmur: No - Abdominal Inspection: Normal Distension: No distension Bowel sounds: Normal Tenderness: Nontender Organomegaly: No organomegaly - Back Back: Normal, Nontender - Extremities General upper extremity: Nontender, Normal color, Normal ROM, Normal temperature. No: Normal inspection - Right olecranon bursitis mild erythema and warmth not really consistent with an infected bursa sac patient does have range of motion of the elbow. Left unaffected General lower extremity: Normal inspection, Nontender, Normal color, Normal ROM , Normal temperature, Normal weight bearing. No: Marcela's sign - Neurological Neuro grossly intact: Yes Cognition: Normal Orientation: AAOx4 Desire Coma Scale Eye Opening: Spontaneous Desire Coma Scale Verbal: Oriented Desire Coma Scale Motor: Obeys Commands [place] Coma Scale Total: 15 Speech: Normal Motor strength normal: LUE, RUE, LLE, RLE Sensory: Normal - Psychological Associated symptoms: Normal affect, Normal mood - Skin Skin Temperature: Warm Skin Moisture: Dry Skin Color: Normal Course - Re-evaluation Re-evalutation: 02/19/18 16:19 Patient was to have a right olecranon bursitis. Recommend patient take his Percocet at home for pain control also recommended Tylenol and some anti- inflammatory medications. Patient had a lidocaine patch placed and also a compress the bursa with an Coy wrap. Patient was given orthopedic information for here in [place] states that he will follow-up with his doctor in [facility]. - Vital Signs Vital signs: Temp Pulse Resp BP Pulse Ox 98.3 F 72 20 130/71 H 96 02/19/18 13:31 02/19/18 13:31 02/19/18 13:31 02/19/18 13:31 02/19/18 13:31 Discharge - Discharge Clinical Impression: Olecranon bursitis, right elbow Condition: Good Disposition: HOME, SELF-CARE Instructions: Anti-Inflammatory Medication ([facility]), Bursitis ([facility]), Ice Massage ( [facility]), Oral Narcotic Medication ([facility]) Additional Instructions: Treatment for bursitis but time involved Tylenol antifungal medication such as motion. I would recommend taking the Percocet at home for pain control. At this time your elbow bursitis does not look to be infected. I recommend following up with the orthopedic doctor with orthopedic doctors provided to you that are here in [place]. Return to ER symptoms worsen or if you develop a fever temperature over 101. Forms: Smoking Cessation Education Referrals: MARION MCDANIELS MD [ACTIVE STAFF] - Follow up as needed
== END 2018-02-19 14:21 | disposition home or self-care (01) ==
LOC: ER 13:14
DX: M70.21 Olecranon bursitis, right elbow (principal); I10 Essential (primary) hypertension; E11.9 Type 2 diabetes mellitus without complications; J44.9 Chronic obstructive pulmonary disease, unspecified; Z88.1 Allergy status to other antibiotic agents; Z87.891 Personal history of nicotine dependence
CPT/HCPCS: 99283

== ENCOUNTER 2018-02-22 16:49 | Emergency (ER) | payer MEDICARE ==
[2018-02-22] MEDS ORDERED: CLINDAMYCIN 600 MG/D5W RTU 600 MG/50 ML RTUPB IV ONE (17:42)
--- NOTE | 2018-02-22 17:48 | ER Document Report ---
ED Medical Screen (RME) - General Chief Complaint: Elbow Injury Stated Complaint: ARM SWELLING Time Seen by Provider: 02/22/18 17:36 Notes: RAPID MEDICAL EVALUATION DISCLOSURE I have seen this patient as part of a Rapid Medical Evaluation and, if applicable, placed any initially appropriate orders. The patient will be seen and fully evaluated, including a full history and physical exam, by a provider ( in Main ED or Fast Track) when a room becomes available. 77-year-old male here with complaints of continued right elbow pain but now states that he has redness that started 1 hour ago and has spread up his arm and down the forearm. The redness initially started at the elbow but has rapidly spread and this is the reason he has come in today. He states that his elbow is not usually swollen and puffy as it is currently. He does have a history of MRSA but he also does have a history of chronic kidney disease and states his last creatinine was 1.7. EXAM There is bogginess/fluctuance of right olecranon bursa region There is mild erythema and increased warmth extending from the arm down to the forearm TRAVEL OUTSIDE OF THE [place] IN LAST 30 DAYS: No - Related Data Allergies/Adverse Reactions: bacitracin [Bacitracin] Allergy (Verified 02/22/18 16:55) Home Medications: synthroid, torsemide, diazapem, plavix, nitro, percocet, metformin, lisinopril, Past Medical History - Social History Chew tobacco use (# tins/day): No Frequency of alcohol use: None Drug Abuse: None - Past Medical History Cardiac Medical History: Reports: Hx Atrial Fibrillation, Hx Congestive Heart Failure, Hx Hypercholesterolemia, Hx Hypertension Pulmonary Medical History: Reports: Hx COPD Endocrine Medical History: Reports: Hx Diabetes Mellitus Type 2 Renal/ Medical History: Denies: Hx Peritoneal Dialysis Musculoskeltal Medical History: Reports Hx Gout Past Surgical History: Reports: Hx Abdominal Surgery - hernia w/ mesh, Hx Cardiac Surgery - defibulator placement, Hx Coronary Stent, Hx Vascular Surgery , Other - AICD - Immunizations Immunizations up to date: No Hx Diphtheria, Pertussis, Tetanus Vaccination: Yes History of Influenza Vaccine for 07/2017 - 12/2017 Season: No Physical Exam - Vital signs Vitals: Temp Pulse Resp BP Pulse Ox 98.8 F 80 20 156/86 H 95 02/22/18 17:01 02/22/18 17:01 02/22/18 17:01 02/22/18 17:01 02/22/18 17:01 Course - Vital Signs Vital signs: Temp Pulse Resp BP Pulse Ox 98.8 F 80 20 156/86 H 95 02/22/18 17:01 02/22/18 17:01 02/22/18 17:01 02/22/18 17:01 02/22/18 17:01
[2018-02-22 18:49] LABS: ABSOLUTE EOSINOPHILS # (AUTO) 0.4 10^3/uL (0.0-0.6); ABSOLUTE LYMPHOCYTES (AUTO) 0.8 10^3/uL (0.5-4.7); ABSOLUTE MONOCYTES (AUTO) 0.7 10^3/uL (0.1-1.4); ABSOLUTE NEUT (AUTO) 5.2 10^3/uL (1.7-8.2); BASOPHILS % (AUTO) 0.6 % (0-2); EOSINOPHILS % (AUTO) 5.3 % (0-6); HEMATOCRIT 33.1 % (37.9-51.0); LYMPHOCYTES % (AUTO) 11.4 % (13-45); MEAN CORPUSCULAR HEMOGLOBIN 27.4 pg (27.0-33.4); MEAN CORPUSCULAR HGB CONC 33.2 g/dL (32.0-36.0); MEAN CORPUSCULAR VOLUME 83 fl (80-97); MONOCYTES % (AUTO) 9.7 % (3-13); PLATELET COUNT 262 10^3/uL (150-450); RED BLOOD COUNT 4.01 10^6/uL (4.35-5.55); RED CELL DISTRIBUTION WIDTH 16.7 % (11.5-14.0); TOTAL CELLS COUNTED % (AUTO) 100 %; WHITE BLOOD COUNT 7.1 10^3/uL (4.0-10.5)
[2018-02-22 19:04] LABS: ANION GAP 14 (5-19); BLOOD UREA NITROGEN 22 mg/dL (7-20); CARBON DIOXIDE 33 mmol/L (22-30); CHLORIDE 97 mmol/L (98-107); GLUCOSE 105 mg/dL (75-110); POTASSIUM 3.8 mmol/L (3.6-5.0); SODIUM 143.9 mmol/L (137-145)
--- NOTE | 2018-02-22 20:17 | RADIOLOGY REPORT (SQ) ---
EXAM DESCRIPTION: ELBOW RIGHT AP/LAT COMPLETED DATE/TIME: 02/22/2018 7:51 pm REASON FOR STUDY: pain, swelling COMPARISON: None. NUMBER OF VIEWS: Two views. TECHNIQUE: AP and lateral radiographic images acquired of the right elbow. LIMITATIONS: None. FINDINGS: MINERALIZATION: Normal. BONES: No acute fracture or dislocation. Bony spurs noted at the distal humerus and at the olecranon all. JOINT: No effusion. SOFT TISSUES: Soft tissue swelling at the elbow. No radiopaque foreign body. IMPRESSION: Soft tissue swelling at the right elbow with no radiographic evidence for acute fracture . TECHNICAL DOCUMENTATION: JOB ID: [id number] [employer]- All Rights Reserved Reading location - IP/workstation name: [email or web address]
--- NOTE | 2018-02-22 20:33 | ER Document Report ---
ED General - General Chief Complaint: Elbow Injury Stated Complaint: ARM SWELLING Time Seen by Provider: 02/22/18 17:36 Notes: Patient is a 77-year-old male with medical history as recorded who presents with 12 hours of progressive redness, pain and swelling to his right forearm, elbow and proximal biceps. Patient was seen in the emergency department several days ago for increased swelling to his right elbow. He notes that the swelling to the elbow has somewhat improved now he has an area of erythema on his arm. He is have the areas having a burning, throbbing, constant pain. Nothing improves or worsens his symptoms. He denies a history of similar in the past. He has not seen his primary care doctor regarding today's concerns with states he has an appointment on Saturday of next week. He denies any fever or constitutional symptoms. TRAVEL OUTSIDE OF THE [place] IN LAST 30 DAYS: No - Related Data Allergies/Adverse Reactions: bacitracin [Bacitracin] Allergy (Verified 02/22/18 16:55) Home Medications: synthroid, torsemide, diazapem, plavix, nitro, percocet, metformin, lisinopril, Past Medical History - General Information source: Patient - Social History Smoking Status: Never Smoker Chew tobacco use (# tins/day): No Frequency of alcohol use: None Drug Abuse: None Lives with: Alone Family History: Reviewed & Not Pertinent Patient has suicidal ideation: No Patient has homicidal ideation: No - Past Medical History Cardiac Medical History: Reports: Hx Atrial Fibrillation, Hx Congestive Heart Failure, Hx Hypercholesterolemia, Hx Hypertension Pulmonary Medical History: Reports: Hx COPD Endocrine Medical History: Reports: Hx Diabetes Mellitus Type 2 Renal/ Medical History: Denies: Hx Peritoneal Dialysis Musculoskeltal Medical History: Reports Hx Gout Past Surgical History: Reports: Hx Abdominal Surgery - hernia w/ mesh, Hx Cardiac Surgery - defibulator placement, Hx Coronary Stent, Hx Vascular Surgery , Other - AICD - Immunizations Immunizations up to date: No Hx Diphtheria, Pertussis, Tetanus Vaccination: Yes Review of Systems - Review of Systems Notes: Constitutional: Negative for fever. HENT: Negative for sore throat. Eyes: Negative for visual changes. Cardiovascular: Negative for chest pain. Respiratory: Negative for shortness of breath. Gastrointestinal: Negative for abdominal pain, vomiting or diarrhea. Genitourinary: Negative for dysuria. Musculoskeletal: Positive for right elbow pain Skin: Positive for rash. Neurological: Negative for headaches, weakness or numbness. 10 point ROS negative except as marked above and in HPI. Physical Exam - Vital signs Vitals: Temp Pulse Resp BP Pulse Ox 98.8 F 80 20 156/86 H 95 02/22/18 17:01 02/22/18 17:01 02/22/18 17:01 02/22/18 17:01 02/22/18 17:01 Interpretation: Hypertensive Notes: PHYSICAL EXAMINATION: GENERAL: Well-appearing, well-nourished and in no acute distress. HEAD: Atraumatic, normocephalic. EYES: Pupils equal round and reactive to light, extraocular movements intact, sclera anicteric, conjunctiva are normal. ENT: nares patent, oropharynx clear without exudates. Moist mucous membranes. NECK: Normal range of motion, supple without lymphadenopathy LUNGS: Breath sounds clear to auscultation bilaterally and equal. No wheezes rales or rhonchi. HEART: Regular rate and rhythm without murmurs ABDOMEN: Soft, nontender, normoactive bowel sounds. No guarding, no rebound. No masses appreciated. EXTREMITIES: Normal range of motion, no pitting or edema. The bilateral olecranon bursa. NEUROLOGICAL: No focal neurological deficits. Moves all extremities spontaneously and on command. PSYCH: Normal mood, normal affect. SKIN: Warm, Dry, normal turgor, there is a 7 X5 cm area of erythema to the proximal right central forearm extending to the medial aspect of the elbow and up to the distal aspect of the biceps Course - Re-evaluation Re-evalutation: 02/22/18 20:33 Presentation of well-appearing 77-year-old male with 12 hours of progressively worsening erythema discomfort to the right inner forearm and proximal biceps. Patient was seen several days ago, diagnosed with a right elbow bursitis. The patient does not have any limitation of his range of motion to the elbow to suggest an acute septic joint. Likewise he has a obvious bursitis to the bilateral elbows that does not appear any larger on the right versus the left. There is no fluctuance the area to suggest an acute abscess. Patient's labs are otherwise unremarkable. He is diabetic but does not use insulin and has no immune compromise and does not take any medications to suppress the immune system. His vitals are within normal limits. The area of sialitis has been traced here in the emergency department. He will be started on cephalexin. He has a scheduled follow-up within the next 72 hours with his primary care doctor. We have reviewed at length indications of a possible septic joint and the need to immediately return to the emergency department if he were to develop the symptoms. At this time will discharge with return precautions and follow-up recommendations. Verbal discharge instructions given a the bedside and opportunity for questions given. Medication warnings reviewed. Patient is in agreement with this plan and has verbalized understanding of return precautions and the need for primary care follow-up in the next 24-72 hours. - Vital Signs Vital signs: Temp Pulse Resp BP Pulse Ox 98.7 F 95 16 140/96 H 98 02/22/18 20:44 02/22/18 20:44 02/22/18 20:44 02/22/18 20:44 02/22/18 20:44 - Laboratory Result Diagrams: 02/22/18 18:13 02/22/18 18:13 Laboratory results interpreted by me: 02/22/18 02/22/18 18:13 18:13 RBC 4.01 L Hgb 11.0 L Hct 33.1 L RDW 16.7 H Lymphocytes % 11.4 L Chloride 97 L Carbon Dioxide 33 H BUN 22 H Creatinine 1.62 H Est GFR ( Amer) 50 L Est GFR (Non-Af Amer) 42 L Discharge - Discharge Clinical Impression: Right arm cellulitis, Right elbow pain Condition: Stable Disposition: HOME, SELF-CARE Additional Instructions: The rash is likely due to infection of your skin. You need to take the antibiotics as prescribed. Do not stop even if the rash goes away until you have completed all the antibiotics. The area of redness was traced out here in the emergency department with a marking pen. You need to return to emergency department if the redness spreads outside of this area by more than 2 cm in any direction. You should also return if you develop fevers with temperature greater than 101, the pain to her right elbow becomes more intense, you become unable to move the right elbow, you have persistent vomiting, worsening pain, or have any other symptoms that are concerning to you. Follow-up with your primary care doctor on Saturday as scheduled. Prescriptions: Cephalexin Monohydrate [Keflex 500 mg Capsule] 500 mg PO Q6H 7 Days capsule
[2018-02-22 20:44] VITALS: BP 140/96
== END 2018-02-22 20:45 | disposition home or self-care (01) ==
LOC: ER 16:49
DX: L03.113 Cellulitis of right upper limb (principal); M25.521 Pain in right elbow; M79.89 Other specified soft tissue disorders; M79.631 Pain in right forearm; I10 Essential (primary) hypertension; J44.9 Chronic obstructive pulmonary disease, unspecified; E11.9 Type 2 diabetes mellitus without complications
CPT/HCPCS: 36415; 80048; 85025; 87040; 96365; 99284